=== PATIENT | female | born 1930 | race Caucasian/White ===

== ENCOUNTER 2017-04-25 15:25 | Emergency (ER) | payer MEDICARE, OTHER ==
[~2017-04-25] VITALS: Ht 157.5 cm; Wt 80.0 kg
[~2017-04-25 15:25] MED LIST: ASCO100089 PO; CHOL200025 PO; MEMA5TAB PO; VITA400C64 PO
[2017-04-25 15:40] VITALS: PULSE 82; RESP 16; O2SAT 98
--- NOTE | 2017-04-25 15:51 | ED.REPORT ---
HPI-General Illness Date of Service Apr 25, 2017 ED Provider: Dr. Hernandez 87 y/o female with a hx of HTN, dementia and idiopathic thrombocytopenia presents to the ED via EMS due to dizziness just prior to arrival. The pt went for a short walk when she collapsed. She did not lose consciousness. She denies chest pain, headache and dizziness in the ED. She had a similar episode last year as well. As per the daughter, she has also been complaining of fatigue for several weeks. Nursing Notes Stated Complaint: SYNCOPE Chief Complaint: General Complaint Nursing Notes Reviewed: Yes Allergies: Coded Allergies: Penicillins (Verified Allergy, Severe, 07/08/11) PER DR MONK DOMO Inhibitors (Verified Allergy, Unknown, 10/04/14) Sulfa (Sulfonamide Antibiotics) (Verified Allergy, Unknown, 10/04/14) Scheduled Ascorbic Acid (Vitamin C) 1,000 Mg Tab.chew 1,000 MG PO DAILY Cholecalciferol (Vitamin D3) (Vitamin D3) 2,000 Unit Tablet 2,000 UNIT PO DAILY Memantine HCl (Namenda) 5 Mg Tablet 5 MG PO DAILY Vitamin E Mixed (Vitamin E) 400 Unit Capsule 400 UNIT PO DAILY General Time Seen by MD: 15:50 Chief Complaint Dizziness Hx Obtained From: Patient, Daughter Arrived By: Ambulance Sudden in Onset?: Yes Onset Occurred: Just prior to arrival Symptom Duration: 1 - 15 minutes Severity: Current: No pain currently Severity: Maximum: No pain Recent Healthcare: No recent doctor visit Similar Sx Previous: Yes Past Medical History Past Medical History Notes: PCP: Dr. Jurado Hemoncologist: Dr. Lyons. Past Medical History PCP: Dr. 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 Dyslipidemia Acute renal failure UTI Tricuspid regurgitation Pulmonary hypertension Reports: Hypertension Reports: Dementia Past Surgical History Reports: Appendectomy, Hysterectomy Smoking History Never Smoker Social History Other Social History: Ambulatory Status Independent Review of Systems Full Review of Systems Constitutional: Reports: Fatigue Cardiovascular: Denies: Chest pain Neurologic: Reports: Dizziness (now resolved), Denies: Change LOC, Headache Physical Exam Vital Signs Vital Signs Date Time Temp Pulse Resp B/P Pulse Ox O2 Delivery O2 Flow Rate FiO2 04/25/17 17:34 86 15 135/59 96 Room Air 04/25/17 15:40 36.7 82 16 98 Room Air Initial VS: Reviewed Head / Eyes: Atraumatic, Normocephalic Neck: Full range of motion Respiratory: Breath sounds normal, Clear to auscultation, No respiratory distress Cardiovascular: Regular rate & rhythm, Heart sounds normal, Intact distal pulses Abdomen / GI: Soft, Non-tender Extremities: Vascular intact, Neuro intact, No swelling, No tenderness Skin: Warm, Dry, No cyanosis Neurologic: Alert, Oriented, Nonfocal General/Constitutional: Awake, No acute distress, Cooperative Alertness: Positive: Confused Interpretation & Diagnostics Lab Results Interpretation Result Diagram: 04/25/170 04/25/17 1650 Test 04/25/17 16:00 04/25/17 16:50 Hold [place] Top Tube Received (Received) White Blood Count 6.8th/mm3 (3.8-10.1) Red Blood Count 4.57mil/mm3 (3.90-5.20) Hemoglobin 13.3g/dL (12.0-15.6) Hematocrit 40.5% (35.0-46.0) Mean Corpuscular Volume 88.6fL (81-100) Mean Corpuscular Hemoglobin 29.1pg (27.0-35.0) Mean Corpuscular Hemoglobin Concent 32.8% (32.0-37.0) Red Cell Distribution Width 13.8% (12.3-15.4) Platelet Count 37bil/L (150-400) Neutrophils (%) (Auto) 71.5% (40-74) Lymphocytes (%) (Auto) 16.7% (14-46) Monocytes (%) (Auto) 9.1% (4-12) Eosinophils (%) (Auto) 1.9% (0-5) Basophils (%) (Auto) 0.7% (0-3) Sodium Level 139mEq/L (134-144) Potassium Level 4.2mEq/L (3.5-5.2) Chloride Level 104mEq/L (97-108) Carbon Dioxide Level 23mmol/L (18-29) Blood Urea Nitrogen 15mg/dL (8-27) Creatinine 1.04mg/dL (0.57-1.00) Estimat Glomerular Filtration Rate 72mL/min (>59) Glucose Level 143mg/dL (60-99) Calcium Level 9.8mg/dL (8.5-10.1) Magnesium Level 2.3mg/dL (1.6-2.6) Total Bilirubin 0.3mg/dL (0.0-1.2) Aspartate Amino Transf (AST/SGOT) 22U/L (0-50) Alanine Aminotransferase (ALT/SGPT) 10U/L (0-32) Alkaline Phosphatase 62U/L (25-165) Troponin T < 0.010ug/L (0.0-0.011) Total Protein 6.9g/dL (6.4-8.4) Albumin 4.0g/dL (3.4-5.0) Lab Results Interpretation: Urine dip noninfected non-concerning ECG Interpretation ECG Interpretation: Normal sinus rhtyhm. Rate 89. Early transition abnormal R wabe progression Time: 16:28 Interpreted by: ED physician X-Ray Chest Interpretation Chest Xray Interpretation: IMPRESSION: Negative chest. No acute cardiopulmonary process is evident. Dictated by: Gopi Celaya M.D. on 04/25/2017 at 15:18 Approved by: Gopi Celaya M.D. on 04/25/2017 at 15:19 View: Portable, 1 view Interpretation / Wet Read by: Interpret - Radiologist Re-Eval/Medical Decision Med Decision/Clinical Course Patient presents after having a syncopal episode, this was witnessed and there was no head trauma. Other than thrombocytopenia which is chronic she does not have any other acute abnormality, her EKG was reassuring. After discussion with family she is in agreement to take the patient home. Return and follow-up precautions given. Time of Eval: 17:21 Patient Status: Condition improved Re-Evaluation/Progress Note: Rechecked pt. She denies headache. Talked about thrombocytopenia. The pt and her daughter don't want a head CT as the pt did not hit her head. They want to go home. Discussed lab results, imaging results, diagnosis and plan to discharge. Pt understands and agrees with the plan. F/U instructions and RTER warning given. All questions addressed. Counseled Regarding: Diagnosis, Lab results, Need for follow-up, When/why to return to ED Discharge & Departure Primary Impression: Syncope Disposition: Home Discharge Condition All VS Reviewed: Yes Condition: Stable Additional Instructions: All of the tests today are reassuring. You do continue to have low platelets. Follow-up at the primary care doctor in the next 2 days for repeat evaluation. Stay hydrated. Return to the ER as needed if worse. Referrals: Cedric Palacios PA-C (PCP) Scribe Attestation Portions of this note were transcribed by Wilmer Forrest. I, , personally performed the history, physical exam and medical decision-making;I reviewed and confirmed the accuracy of the information in the transcribed note. Signed by Bridget Franklin. 04/25/17 17:43 copies to: Cedric Palacios PA-C, Timothy S DO Apr 25, 2017 15:51 Wilmer Forrest Apr 25, 2017 17:40
--- NOTE | 2017-04-25 16:20 | DRSVH ---
PROCEDURE: X-RAY CHEST ONE VIEW, PORTABLE ([id number]) INDICATIONS: syncope TECHNIQUE: One view of the chest was acquired. COMPARISON: [facility], , CHEST 2VW, 03/03/2015, 17:40. FINDINGS: Surgical changes and devices: None. Lungs and pleura: No pleural effusions or pneumothorax. Lungs are clear. Mediastinum: Mediastinal contours appear normal. Heart size is normal. There is aortic atheroscler osis. Bones and chest wall: No suspicious bony lesions. The bone mineralization is decreased. There are degenerative changes of the spine, not well evaluated. Overlying soft tissues appear unremarkable. IMPRESSION: Negative chest. No acute cardiopulmonary process is evident. Dictated by: Gopi Celaya M.D. on 04/25/2017 at 15:18 Approved by: Gopi Celaya M.D. on 04/25/2017 at 15:19
[2017-04-25 17:11] LABS: BASOPHILS % (AUTO) 0.7 % (0-3); EOSINOPHILS % (AUTO) 1.9 % (0-5); MONOCYTES % (AUTO) 9.1 % (4-12); Mean Corpuscular Hemoglobin 29.1 pg (27.0-35.0); Mean Corpuscular Volume 88.6 fL (81-100); NEUTROPHILS % (AUTO) 71.5 % (40-74)
[2017-04-25 17:19] LABS: Platelet Count 37 bil/L (150-400)
[2017-04-25 17:32] LABS: Magnesium 2.3 mg/dL (1.6-2.6)
[2017-04-25 17:34] VITALS: BP 135/59; PULSE 86; RESP 15; O2SAT 96
[2017-04-25 17:45] LABS: TROPONIN T < 0.010 ug/L (0.0-0.011)
[2017-04-25 18:25] VITALS: BP 132/60; PULSE 80; RESP 16; O2SAT 97
== END 2017-04-25 18:26 | disposition home or self-care (01) ==
LOC: SED 15:25
DX: R55 Syncope and collapse (principal); I10 Essential (primary) hypertension; D69.6 Thrombocytopenia, unspecified; F03.90 Unspecified dementia, unspecified severity, without behavioral disturbance, psychotic disturbance, mood disturbance, and anxiety; Z96.653 Presence of artificial knee joint, bilateral; Z88.2 Allergy status to sulfonamides; Z88.8 Allergy status to other drugs, medicaments and biological substances; Z88.0 Allergy status to penicillin